=== PATIENT | male | born 1995 | race Caucasian/White ===

== ENCOUNTER 2016-11-20 15:55 | Emergency (ER) | payer BC, OTHER ==
[~2016-11-20] VITALS: Ht 182.9 cm; Wt 86.1 kg
[2016-11-20 16:18] VITALS: BP 123/91; TEMP 36.8; Ht 182.9 cm; Wt 86.1 kg
[2016-11-20] MEDS ORDERED: XYLOCAINE 1%/SOD BICARB 20 ML VIAL INFIL ONE (16:30)
[2016-11-20 17:50] VITALS: PULSE 83; O2SAT 98
--- NOTE | 2016-11-21 21:09 | EMERGENCY ROOM VISIT NOTE ---
ED Visit Note First contact with patient: 16:26 Chief Complaint: Right wrist laceration. History of Present Illness: Mr. Toth is a 21-year-old white male who ambulates into the ED complaining of the laceration over the posterior and lateral aspect of the distal ulna. Patient reports approximately 1.5 hours ago he was at work and cut his wrist on a piece of sheet metal. Prior to arrival at the hospital he did control bleeding but did not wash the wound. Currently he is having a stinging pain in the area of his laceration and just inferior to his laceration over the lateral aspect of the hyperthenar eminence. He rates his discomfort 5/10. The pain is nonradiating. The pain worsens with palpation. He has not identified any alleviating factors related to the pain. He has not taken any medication for pain prior to arrival at the hospital. He denies any associated symptoms including forearm pain, wrist pain , other hand pain, finger pain, hand weakness/numbness/tingling. Review of Systems: As noted above in history of present illness. Past Medical History: Patient denies. Current Medications: Patient denies. Allergies to Medications: Patient denies. Social History: Patient is currently employed; he feels safe in his home environment; he denies tobacco and alcohol use. Tetanus Immunization Status: Patient reports up-to-date. Physical Examination: Vital Signs: Date Time Temp Pulse Resp B/P (MAP) Pulse Ox O2 Delivery O2 Flow Rate FiO2 11/20/16 17:50 83 18 98 11/20/16 16:18 36.8 74 18 123/91 96 Room Air GENERAL: 21-year-old male in mild distress due to pain, nontoxic-appearing, afebrile and hemodynamically stable. NEUROLOGICAL: Awake, alert and oriented to person, place and time. Answering questions appropriately and following commands. SKIN: Warm, dry and pink. Right Wrist: 3.5 cm C-shaped laceration with flap over the posterior and lateral aspect of the distal ulna. Additionally just distal to that over the lateral aspect of the hyperthenar eminence patient has 2 (two) approximately 1 cm skin avulsions. There is no active bleeding and the site. RIGHT HAND: Soft tissue injuries as noted above under SKIN. No gross bony deformity. Minimal tenderness over his wrist laceration. Mild bony tenderness throughout the wrist or hand. Full range of motion in flexion, extension and radial and ulnar deviation of the wrist and flexion and extension of all fingers. Throughout the hand the skin was warm and pink and capillary refill is brisk. He was able to distinguish light sensations through all dermatomes. ED Course: Patient is assessed as noted above. Wound Repair: Complexity: Basic Verbal consent was obtained after the risks and benefits were explained. The skin was prepped with betadine and a sterile field set. Wound edges of the wound was anesthetized with 3.2 ml buffered 1% lidocaine. The wound was explored for foreign bodies and none found. Copious irrigation was performed using sterile saline. With direct pressure the bleeding subsided. Debridement was not performed. The wound edges were approximated using 5-0 Ethilon with 9 simple interrupted sutures. Hemostasis and excellent approximation was achieved. Antibacterial ointment and a sterile dressing applied. Additionally patient's areas of skin avulsions were cleansed with antibacterial soap and water and covered with a bacitracin dressing. No complications and the patient tolerated the procedure well. Patient was educated about tonight's findings and instructed on his treatment plan; he verbalizes understanding and agreement with this plan. Clinical Impression: Laceration of the right wrist. Small skin avulsions right wrist. Work related injury. Disposition: Patient discharged home in stable condition; prior to departure he was reassessed and subjectively reported he was feeling better and rated his discomfort 2/10. Plan: Comfort measures, wound care, and signs of infection were discussed with the patient. Patient was encouraged to follow-up with Workmen's Compensation or return ED for signs of infection and/or suture removal in 10-12 days.
== END 2016-11-20 17:52 | disposition home or self-care (01) ==
LOC: C.EDB 15:58 → C.EDD 17:52
DX: S61.511A Laceration without foreign body of right wrist, initial encounter (principal); W45.8XXA Other foreign body or object entering through skin, initial encounter; Y92.89 Other specified places as the place of occurrence of the external cause; Y99.0 Civilian activity done for income or pay